=== PATIENT | female | born 2000 | race Caucasian/White ===

== ENCOUNTER 2024-01-22 00:59 | Emergency (ER) | payer BC, SELFPAY ==
[2024-01-22 01:02] VITALS: BP 140/90
[2024-01-22 01:40] LABS: Hematocrit 35.8 % (37.0-47.0); Hemoglobin 12.6 g/dL (12.0-16.0); Mean Corp Hgb Conc. 35.2 g/dL (33.0-37.0); Mean Corpuscular Hgb 30.9 pg (27.0-31.0); Mean Corpuscular Volume 87.7 fL (81.0-99.0); Mean Platelet Volume 9.5 fL (7.4-10.4); Platelet Count 300 10^3/uL (130-400); Red Blood Cell Count 4.08 10^6/uL (4.20-5.40); Red Cell Dist. Width 12.4 % (11.5-14.5); White Blood Cell Count 11.8 10^3/uL (4.8-10.8)
[2024-01-22 01:53] LABS: HCG, Serum Qualitative Screen Negative
[2024-01-22 01:55] LABS: Blood Urea Nitrogen 19 mg/dl (7-17); Calcium 9.6 mg/dl (8.4-10.2); Carbon Dioxide 26 mmol/L (22-30); Chloride 104 mmol/L (98-107); Glucose 108 mg/dl (70-99); Potassium 4.1 mmol/L (3.5-5.1); Sodium 138 mmol/L (135-145); eGFR > 60.00
[2024-01-22 04:43] VITALS: BP 122/73
[2024-01-22 04:44] VITALS: BMI 34.9
--- NOTE | 2024-01-22 05:08 | ED.GENMED ---
History of Present Illness
<REVA Maldonado (Lenka) - Last Filed: 01/22/24 06:18>
General
Chief Complaint: Generalized Pain
Source: patient and significant other
Exam Limitations: none
Time Seen by Provider: 01/22/24 04:50
Nursing documentation reviewed up to this point in time: agreed with
History of Present Illness
History of Present Illness:
Pt is a 23 yo female with PMHx of rheumatoid arthritis who presents to the ED with generalized malaise and myalgias x 1d. Yesterday morning (01/20) pt 'felt off', lightheaded, and 'like my body was airy'. Around 2200 tonight she began trembling, but
did not feel hot to touch, was not diaphoretic, denies chills. However, she did not check her temperature. This resolved without intervention after about 6 hours. She endorses nausea, no vomiting. Associated dyspnea, no pleurisy. No headache, chest
pain, abdominal pain or cramping, constipation, diarrhea. No known sick contacts. Pt is here visiting from [place]. Per partner, he manually counted her pulse at home, obtained a rate of 120. Pt states she has been unable to sleep due to diffuse
myalgias.
Pt does not take daily medications.
Past History
<REVA Maldonado (Lenka) - Last Filed: 01/22/24 06:18>
Past History
ED Past Medical History: Other (rheumatoid arthritis)
Phy Exam
<REVA Maldonado (Lenka) - Last Filed: 01/22/24 06:18>
General Physical Exam
General Presentation: no apparent distress
General age: appears stated age
General Skin: warm and diaphoretic
General Habitus: normal
General Mental: alert
General Hydration: appears well hydrated
Cardiovascular Exam
Cardiovascular Exam: regular rate/rhythm, no gallop, no murmur and normal peripheral pulses
Pulmonary Exam
Pulmonary Exam: lungs clear, no respiratory distress, no rales, no rhonchi, no wheezing and no cough
Gastrointestinal Exam
Gastrointestinal Exam: normal bowel sounds, non distended and tender (RLQ, mild)
Palpation: right lower quadrant: Mild tenderness
Course
<REVA Maldonado (Lenka) - Last Filed: 01/22/24 06:18>
Orders/Labs/Results
Orders:
Orders
01/22/24 01:07
Test Result ONCE
01/22/24 01:33
BMP [Basic Metabolic Panel] Urgent
Complete Blood Count/No Diff Urgent
HCG, Serum Qualitative Screen Urgent
01/22/24 04:48
COVID-19 Antigen Urgent
Source: Nasal Swab
01/22/24 05:15
Ibuprofen [Motrin] 600 mg PO NOW STA
Abnormal Lab Results
01/22/24
01:33
WBC 11.8 H 10^3/uL
(4.8-10.8)
RBC 4.08 L 10^6/uL
(4.20-5.40)
Hct 35.8 L %
(37.0-47.0)
BUN 19 H mg/dl
(7-17)
Glucose 108 H mg/dl
(70-99)
01/22/24 01:33
01/22/24 01:33
Vital Signs
Initial and Last Documented VS:
Initial Vital Signs
Temp Pulse Resp BP Pulse Ox
98 F 100 22 140/90 97
01/22/24 01:02 01/22/24 01:02 01/22/24 01:02 01/22/24 01:02 01/22/24 01:02
Last Documented Vital Signs
Temp Pulse Resp BP Pulse Ox
98.6 F 92 16 122/73 98
01/22/24 04:43 01/22/24 04:43 01/22/24 04:43 01/22/24 04:43 01/22/24 04:43
<Dawit oHuse, DO - Last Filed: 01/22/24 06:28>
Orders/Labs/Results
Orders:
Orders
01/22/24 01:07
Test Result ONCE
01/22/24 01:33
BMP [Basic Metabolic Panel] Urgent
Complete Blood Count/No Diff Urgent
HCG, Serum Qualitative Screen Urgent
01/22/24 04:48
COVID-19 Antigen Urgent
Source: Nasal Swab
01/22/24 05:15
Ibuprofen [Motrin] 600 mg PO NOW STA
Abnormal Lab Results
01/22/24
01:33
WBC 11.8 H 10^3/uL
(4.8-10.8)
RBC 4.08 L 10^6/uL
(4.20-5.40)
Hct 35.8 L %
(37.0-47.0)
BUN 19 H mg/dl
(7-17)
Glucose 108 H mg/dl
(70-99)
01/22/24 01:33
01/22/24 01:33
Vital Signs
Initial and Last Documented VS:
Initial Vital Signs
Temp Pulse Resp BP Pulse Ox
98 F 100 22 140/90 97
01/22/24 01:02 01/22/24 01:02 01/22/24 01:02 01/22/24 01:02 01/22/24 01:02
Last Documented Vital Signs
Temp Pulse Resp BP Pulse Ox
98.6 F 92 16 122/73 98
01/22/24 04:43 01/22/24 04:43 01/22/24 04:43 01/22/24 04:43 01/22/24 04:43
<REVA Maldonado (Lenka) - Last Filed: 01/22/24 06:18>
MDM/Problems Addressed
Differential Diagnosis Includes:
23 yo female with PMHx of rheumatoid arthritis who presents to the ED with generalized weakness and myalgias x 1d.
Pt 'felt off', lightheaded, and 'like my body was airy'. Trembling and nausea and dyspnea. No chills, no fever, no BROWN.
DDx: viral syndrome vs acute RA exacerbation
COVID negative
Will treat with 600mg motrin and reassess
Chronic conditions affecting care: Other (rheumatoid arthritis)
<REVA Maldonado (Lenka) - Last Filed: 01/22/24 06:18>
*Critical Care Note
Total Time (30-74mins, 75-104mins- exclusive of procedures): Not Applicable
<REVA Maldonado (Lenka) - Last Filed: 01/22/24 06:18>
Update Note
Update Note:
0558 - no improvement in general malaise and myalgias with motrin 600mg. Pt reporting the pain and myalgias are predominantly in her spine and tailbone, which is where her chronic pain is always located, but 'it is worse than normal'
ED Attending Note
<REVA Maldonado (Lenka) - Last Filed: 01/22/24 06:18>
-
Portions of this chart may have been created with voice recognition software.� Occasional wrong word or��sound alike� substitutions may have occurred due to the inherent limitations of voice recognition software.
<Dawit House DO - Last Filed: 01/22/24 06:28>
ED Attending Note
Patient seen and examined by attending physician: Yes
I performed the substantive portion of visit, reviewed & personally made and approve the management plan that is documented in note by myself or GERBER.: Yes
ED Attending Note:
Pleasant 23-year-old female with a history of rheumatoid arthritis presents with acute on chronic low back pain, and generalized aching. Patient was seeing a microstrategy reports developer in [place]. Patient states that the microstrategy reports developer closed practice.
Patient has had similar pain in the past. She did take ibuprofen which did not help. Denies fevers, chills, chest pain, or shortness of breath. Patient was seen in conjunction with the PA student. I have reviewed and agree with the history and
treatment plan presented. On my independent physical exam, patient is awake, alert, and oriented x3. No respiratory distress noted. No audible wheezing. No midline spinal tenderness
Discharge Plan
Departure
Patient Disposition: Home (Routine Discharge)
Date of Disposition: 01/22/24
Time of Disposition: 06:27
Patient with high blood pressure during this ER visit?: Yes
Condition: Good
Discharge Problem:
Generalized pain
Instructions: Chronic Pain (DC), BLOOD PRESSURE
Prescriptions:
New
diclofenac sodium 75 mg tablet,delayed release (DR/EC)
75 mg PO BID Qty: 10 0RF
Referrals:
Simran Diaz MD [Consulting Staff] - Tomorrow
NONE,* [Family Provider] -
Activity Restrictions/Additional Instructions:
It was a pleasure meeting you and taking part in your care. We hope for your continued healing and wellness.
Please read discharge instructions in their entirety. However, they are for general education and may not describe your exact diagnosis at discharge. Information on your ER visit and medical conditions were discussed with you along with appropriate
follow up information...
If indicated, please take your medications as instructed and indicated on discharge paperwork.
Please schedule a follow up appointment as directed. Call to schedule an appointment
Please return to the emergency department with ANY change in, persisting, or worsening of symptoms. If any of your symptoms do not improve, or persist, or become more severe within 6-12 hours, please return to the emergency department for further
care.
Please return to the emergency department if you develop a headache, neck pain/stiffness, fever greater than 100.4F, chest pain, shortness of breath, persistent nausea, vomiting, slurred speech, difficulty walking, numbness/tingling, weakness, signs
of infection or any other symptoms that are worrisome to you.
If you have any questions or concerns please do not hesitate to call the Hospital at or E-mail me directly at [email or web address]
Interventions
Interventions:
*Risk Screen - Suicide Last Done: 01/22/24 01:02
*General Assessment Last Done: 01/22/24 04:44
*Neglect/Abuse Screening Last Done: 01/22/24 01:02
*ED COVID-19 Vaccine History Last Done: 01/22/24 04:44
Discharge Date and Time
Print Language: LATVIAN
[2024-01-22 05:09] LABS: COVID-19 Antigen Negative (Negative)
[2024-01-22] MEDS: MOTRIN 600 MG PO (05:21)
[2024-01-22 06:33] VITALS: BP 108/66
== END 2024-01-22 06:35 | disposition home or self-care (01) ==
LOC: EMR 00:59
PROVIDERS: EMERGENCY PHYSICIAN Student in an Organized Health Care Education/Training Program
DX: R42 Dizziness and giddiness (principal); R53.81 Other malaise; M79.10 Myalgia, unspecified site; R11.0 Nausea; M54.50 Low back pain, unspecified; R06.00 Dyspnea, unspecified; Z11.52 Encounter for screening for COVID-19; R53.1 Weakness; R03.0 Elevated blood-pressure reading, without diagnosis of hypertension; M06.9 Rheumatoid arthritis, unspecified; G89.29 Other chronic pain
CPT/HCPCS: 99283; 80048; 84703; 85027; 87811

== ENCOUNTER 2024-03-10 02:52 | Emergency (ER) | payer BC, SELFPAY ==
[2024-03-10 02:55] VITALS: BP 107/73
[2024-03-10 03:00] VITALS: BP 103/72
[2024-03-10 03:02] VITALS: BMI 33.9
[2024-03-10] MEDS: ZOFRAN ODT (ORALLY DISINTEGRATING) 4 MG PO (03:17)
--- NOTE | 2024-03-10 03:31 | ED.GENMED ---
History of Present Illness
<Fernando Melendez MD, Resident - Last Filed: 03/10/24 04:08>
General
Chief Complaint: Alcohol Problem
Source: patient and significant other
Time Seen by Provider: 03/10/24 02:54
Travel History
Have you traveled to any high risk areas for coronavirus over the past 14 days?: No
Have you had any contact with someone who has COVID-19?: No
Do you have any symptoms of coronavirus? Fever > 100 degrees, chills, cough, shortness of breath, sore throat, loss of taste or smell, muscle aches, or headache?: No
History of Present Illness
History of Present Illness:
Marly Fairbanks, age 23, was out drinking this evening and then was unable to stay awake. She was throwing up by the side of the road and not feeling well when she decided to go to the hospital. She had about 4 double-shot Kimberly Jewish drinks and a
couple other drinks. Did not take any other drugs or medications with that. She feels fatigued and is constantly nauseous. Complains of a headache and photophobia. Denies any abdominal or chest pain, shortness of breath or palpitations.
Past History
<Fernando Melendez MD, Resident - Last Filed: 03/10/24 04:08>
Past History
ED Past Medical History: Other (rheumatoid arthritis; alcohol use disorder)
ED Past Surgical History: None and Other
Social History
Tobacco: Former smoker
Alcohol: Binge drinker
Drug: None
Personal: Partner
Employment: Student
<Carlyn Fontaine DO - Last Filed: 03/10/24 05:23>
Past History
ED Past Medical History: Other (rheumatoid arthritis; alcohol use disorder; Rx pain med abuse in the past)
Social History
Drug: Former user
Family History
Family History: Other (Noncontributory)
Review of Systems
<Fernando Melendez MD, Resident - Last Filed: 03/10/24 04:08>
Review of Systems
All Other Systems: Not applicable
Constitutional: Reports fatigue
EENT: Reports no symptoms
Respiratory: Reports no symptoms
Cardiac: Reports no symptoms
ABD/GI: Reports nausea and vomiting
: Reports no symptoms
Musculoskeletal: Reports no symptoms
Skin: Reports no symptoms
Neurological: Reports dizzy
Endocrine: Reports no symptoms
Hematologic/Lymphatic: Reports no symptoms
Psychiatric: Reports no symptoms
Phy Exam
<Fernando Melendez MD, Resident - Last Filed: 03/10/24 04:08>
General Physical Exam
General Presentation: well appearing and no apparent distress
General Skin: warm and dry
General Habitus: normal
General Mental: alert
General Hydration: appears well hydrated
ENT Exam
ENT Exam: EOMI, pharynx normal, neck supple and normocephalic
Eye Exam
Eye Exam: PERRL, cornea clear and conjunctiva normal
Cardiovascular Exam
Cardiovascular Exam: regular rate/rhythm, no edema, no murmur and normal peripheral pulses
Pulmonary Exam
Pulmonary Exam: lungs clear, no respiratory distress, no rales, no crackles, no rhonchi, no stridor, no wheezing and no cough
Gastrointestinal Exam
Gastrointestinal Exam: normal bowel sounds, non tender, soft, no organomegaly, no pulsatile mass and non distended
Neurological Exam
Neurological Exam: alert, oriented x3, no motor deficits and speech normal
Musculoskeletal Exam
Musculoskeletal Exam: full ROM and no edema
Skin Exam
Skin Exam: normal color, warm/dry, no rash and no petechia
Psychiatric Exam
Psychiatric Exam: normal mood/affect
Scores
<Carlyn Fontaine DO - Last Filed: 03/10/24 05:23>
Withdrawal Assessment of Alcohol
Withdrawal Assessment Completed?: Not applicable
Course
<Fernando Melendez MD, Resident - Last Filed: 03/10/24 04:08>
Orders/Labs/Results
Orders:
Orders
03/10/24 03:12
Ondansetron Orally Disint [Zofran Odt (Orally Disintegrating)] 4 mg PO NOW STA
Vital Signs
Initial and Last Documented VS:
Initial Vital Signs
Temp BP Pulse Ox
98.2 F 107/73 99
03/10/24 02:55 03/10/24 02:55 03/10/24 02:55
Last Documented Vital Signs
Temp BP Pulse Ox
98.2 F 100/66 100
03/10/24 02:55 03/10/24 05:00 03/10/24 05:00
<Carlyn Fontaine, DO - Last Filed: 03/10/24 05:23>
Orders/Labs/Results
Orders:
Orders
03/10/24 03:12
Ondansetron Orally Disint [Zofran Odt (Orally Disintegrating)] 4 mg PO NOW STA
Vital Signs
Initial and Last Documented VS:
Initial Vital Signs
Temp BP Pulse Ox
98.2 F 107/73 99
03/10/24 02:55 03/10/24 02:55 03/10/24 02:55
Last Documented Vital Signs
Temp BP Pulse Ox
98.2 F 100/66 100
03/10/24 02:55 03/10/24 05:00 03/10/24 05:00
<Fernando Melendez MD, Resident - Last Filed: 03/10/24 04:08>
*Critical Care Note
Total Time (30-74mins, 75-104mins- exclusive of procedures): Not Applicable
ED Attending Note
<Fernando Melendez MD, Resident - Last Filed: 03/10/24 04:08>
-
Portions of this chart may have been created with voice recognition software.� Occasional wrong word or��sound alike� substitutions may have occurred due to the inherent limitations of voice recognition software.
<Carlyn Fontaine DO - Last Filed: 03/10/24 05:23>
ED Attending Note
Patient seen and examined by attending physician: Yes
I performed a history and physical exam of patient and discussed management with resident, I reviewed resident's note and agree with documented findings and plan of care.: Yes
ED Attending Note:
This is a 23-year-old female with history of rheumatoid arthritis, chronic back pain, had been following with mottler operator in the past and had previously been maintained on rheumatologic's as well as chronic pain medications but currently takes no
medicines on a daily basis.
Had been residing in [place] but more recently relocated locally, resides with her boyfriend.
She attended a green party tonight and admits to significant alcohol consumption which is unusual for her. Her boyfriend called 911 when he drove the patient home and was unable to arouse her, unable to get her out of the car into the house. No reported
fall nor injuries. She arrives via EMS and admits to nausea with few episodes of dry heaves.
She denies risk of . Menses have been normal and on time.
She denies drug use.
23-year-old female appears her stated age, awake, appears moderately intoxicated but oriented x 3 and easily communicative.
No evidence of trauma on exam. No focal neurologic deficits.
Highly suspect acute alcohol intoxication but no evidence of severe intoxication, remains hemodynamically stable, maintaining her airway.
Will give an oral dose of Zofran ODT and continue to observe.
Will plan for oral hydration/oral fluid challenge after nausea resolves.
Could consider laboratory studies but at this point not indicated.
Prior records reviewed, evaluated in this ED January 21 with complaints of myalgias, lightheadedness. Unremarkable laboratory studies at that time.
03/10/2024 0523 AM
Patient remains awake and alert, tolerating oral fluids with no further nausea or vomiting.
Will discharge to home with recommendation she avoid any further alcohol consumption, otherwise stay well-hydrated on a daily basis.
Follow-up with PCP for recheck.
Discharge Plan
Departure
Patient Disposition: Home (Routine Discharge)
Date of Disposition: 03/10/24
Time of Disposition: :23
Patient with high blood pressure during this ER visit?: No
Condition: Good
Discharge Problem:
Alcohol intoxication
Instructions: Alcohol Intoxication ED
Prescriptions:
No Action
diclofenac sodium 75 mg tablet,delayed release (DR/EC)
75 mg PO BID Qty: 10 0RF
Referrals:
[facility] [Provider Group] - Call in 1-3 days for appt
[facility] [Outside]
UNKNOWN - PT DOES,NOT KNOW [Family Provider] -
Interventions
Interventions:
*Risk Screen - Suicide Last Done: 03/10/24 02:55
*General Assessment Last Done: 03/10/24 02:55
*Neglect/Abuse Screening Last Done: 03/10/24 02:55
*ED COVID-19 Vaccine History Last Done: 03/10/24 02:55
ED- Neurological Assessment Last Done: 03/10/24 03:02
ED-Psychological Assessment Last Done: 03/10/24 03:02
Discharge Date and Time
Print Language: GREENLANDIC
[2024-03-10 04:00] VITALS: BP 102/65
[2024-03-10 05:00] VITALS: BP 100/66
== END 2024-03-10 05:47 | disposition home or self-care (01) ==
LOC: EMR 02:52
PROVIDERS: EMERGENCY PHYSICIAN Emergency Medicine
DX: F10.129 Alcohol abuse with intoxication, unspecified (principal); Z87.891 Personal history of nicotine dependence; M06.9 Rheumatoid arthritis, unspecified
CPT/HCPCS: 99283

== ENCOUNTER 2024-06-27 21:26 | Emergency (ER) | payer BC, SELFPAY ==
[2024-06-27 21:27] VITALS: BP 119/70
[2024-06-27 23:21] VITALS: BP 104/77
[2024-06-27 23:23] VITALS: BMI 37.0
[2024-06-27] MEDS: NSS 1000 IV (23:39)
[2024-06-27 23:43] LABS: % Basophils 0.3 % (0-2); % Immature Granulocytes 0.2 % (0-0.5); % Lymphocytes 23.1 % (20.5-51.1); % Monocytes 5.6 % (1.7-9.3); % Neutrophils 67.8 % (42.2-75.2); Absolute Eosinophils 0.3 10^3/uL (0-0.7); Absolute Lymphocytes 2.2 10^3/uL (1.2-3.4); Absolute Monocytes 0.5 10^3/uL (0.1-0.6); Absolute Neutrophils 6.6 10^3/uL (1.4-6.5); Hematocrit 38.3 % (37.0-47.0); Hemoglobin 13.4 g/dL (12.0-16.0); Mean Corpuscular Hgb 31.3 pg (27.0-31.0); Mean Corpuscular Volume 89.5 fL (81.0-99.0); Mean Platelet Volume 9.6 fL (7.4-10.4); Nucleated Red Blood Cells % 0 %; Platelet Count 297 10^3/uL (130-400); Red Blood Cell Count 4.28 10^6/uL (4.20-5.40); White Blood Cell Count 9.7 10^3/uL (4.8-10.8)
--- NOTE | 2024-06-27 23:56 | ED.GENMED ---
History of Present Illness
General
Chief Complaint: Dizziness
Source: patient
Exam Limitations: none
Time Seen by Provider: 06/27/24 22:51
History of Present Illness
History of Present Illness:
This is a 23 year old female that comes in with c/o left sided abd pain. States that she has had pain for the past 4-5 days on the left side. States that it is mid left abd and then it went lower into the lower abd/pelvis. States that she is
nauseated and feels bloated. States that she is able to eat but her appetite has . States that today she felt dizzy like the room was spinning. States that she had chills, occasional chest discomfort that last less then a min, slight
headache and dizziness. Denies any fever, SOB, vomiting, diarrhea, urinary burning.
Past History
Past History
ED Past Medical History: Hypercholesterolemia and Other (rheumatoid arthritis; alcohol use disorder; Rx pain med abuse in the past, Murmur)
ED Past Surgical History: None
Social History
Tobacco: Former smoker
Alcohol: Binge drinker
Drug: Former user
Personal: Single
Employment: Student
Family History
Family History: Other (Noncontributory)
Review of Systems
Review of Systems
All Other Systems: ROS reviewed and negative except as documented in HPI and ROS
Constitutional: Reports chills; Denies fever
EENT: Reports no symptoms
Respiratory: Reports no symptoms; Denies cough or trouble breathing
Cardiac: Reports chest pain (occasional less then 1 min)
ABD/GI: Reports abdominal pain and nausea; Denies vomiting or diarrhea
: Reports no symptoms; Denies dysuria, frequency or urgency
Musculoskeletal: Reports no symptoms
Skin: Reports no symptoms
Neurological: Reports dizzy and headache
Psychiatric: Reports no symptoms
Phy Exam
General Physical Exam
General Presentation: mild distress
General age: appears stated age
General Skin: warm and dry
General Habitus: normal
General Mental: alert
General Hydration: appears well hydrated
ENT Exam
ENT Exam: TM's normal, pharynx normal and neck supple
Eye Exam
Eye Exam: EOMI
Cardiovascular Exam
Cardiovascular Exam: regular rate/rhythm, no edema, no murmur and normal peripheral pulses
Pulmonary Exam
Pulmonary Exam: lungs clear, no respiratory distress, no rales, chest non tender, no crackles, no rhonchi, no wheezing and no cough
Gastrointestinal Exam
Gastrointestinal Exam: normal bowel sounds, soft, no organomegaly, no pulsatile mass, non distended and tender (Left sided abd tenderness with palpation)
Musculoskeletal Exam
Musculoskeletal Exam: full ROM and no edema
Skin Exam
Skin Exam: normal color, warm/dry, no rash and no petechia
Psychiatric Exam
Psychiatric Exam: normal mood/affect
Course
Orders/Labs/Results
Orders:
Orders
06/27/24 21:30
EKG [Electrocardiogram (*1)] Urgent
Reason for Study: Vertigo / Dizzy
EKG- Treatment ONCE
06/27/24 23:24
Urinalysis Reflex To Culture Urgent
Date Specimen was Collected: 06/28/24
Time Specimen was Collected: 00:49
0.9% Sodium Chloride 1000 ml [Nss] 1,000 ml IV BOLUS
Test Result ONCE
06/27/24 23:37
Complete Blood Count/With Diff Urgent
Comprehensive Metabolic Panel Urgent
HCG, Serum Qualitative Screen Urgent
06/28/24 00:45
CT Abd/pelvis W Iv Cont Urgent
Reason For Exam: Left lower abd pain
Abnormal Lab Results
06/27/24
23:37
MCH 31.3 H pg
(27.0-31.0)
Absolute Neuts (auto) 6.6 H 10^3/uL
(1.4-6.5)
BUN 18 H mg/dl
(7-17)
Glucose 109 H mg/dl
(70-99)
06/27/24 23:37
06/27/24 23:37
CBC normal,
Vital Signs
Initial and Last Documented VS:
Initial Vital Signs
Temp Pulse Resp BP Pulse Ox
98.7 F 85 16 119/70 100
06/27/24 21:27 06/27/24 21:27 06/27/24 21:27 06/27/24 21:27 06/27/24 21:27
Last Documented Vital Signs
Temp Pulse Resp BP Pulse Ox
98.7 F 77 19 107/61 100
06/27/24 21:27 06/28/24 00:30 06/28/24 00:30 06/28/24 00:00 06/28/24 00:30
MDM/Problems Addressed
Differential Diagnosis Includes:
Diverticulitis. Ovarian cyst, Ovarian torsion
MDM/Problems Addressed:
This is a 23 year old female that comes in with a 4-5 day history of Left side abd pain. States that she can eat but her appetite has decreased.
Will check labs, give IV fluids, CT scan. Offered patient pain medication but she refused.
Back into see patient. Explained that she never mentioned that she was at [facility] today and had a CT scan. Patient tool the supply technician after the CT was done. Explained to patient that this was a lot of radiation in one day. Explained that there
is a dominant follicle in the left ovary and that this may be the cause of patient discomfort. Do not feel that this is torsion as patient is not that uncomfortable and has not needed anything for pain. Explained to patient that she needs to see
the FIRST MATE as she states she has missed her Period for the past 2 months. Patient to return with any concerns.
Chronic conditions affecting care:
NA
Acute Exacerbation and/or Progression of Chronic Illness:
NA
*Radiology
Radiology exam reviewed: radiology read reviewed (ct [place]-3.5cm dominant follicle in the left ovary is a possible source of pain. The appearance does not suggest ovarian torsion. Normal appendix which is located in the pelvis. Mild
diverticulosis without acute inflammation. Decompressed gallbladder. Normal kidneys with no stones or hydronephr)
*Pulse Oximetry
Patient hypoxic: no
*EKG
Interpreted by ED Provider?: Yes
Heart Rate: 79
Rate: normal
Rhythm: sinus and sinus arrhythmia
[place]: normal axis
QRS Pattern: normal QRS
Ischemia: no ischemia
*Core Analyst Interpretation
Rate: normal
Heart Rate: 73
Rhythm: sinus
*Critical Care Note
Total Time (30-74mins, 75-104mins- exclusive of procedures): Not Applicable
ED Attending Note
-
Portions of this chart may have been created with voice recognition software.� Occasional wrong word or��sound alike� substitutions may have occurred due to the inherent limitations of voice recognition software.
Discharge Plan
Departure
Patient Disposition: Home (Routine Discharge)
Date of Disposition: 06/28/24
Time of Disposition: 01:35
Patient with high blood pressure during this ER visit?: No
Condition: Good
Covid-19: Not Applicable
Discharge Problem:
Left sided abdominal pain, Ovarian follicle
Instructions: Abdominal pain in adults - ED discharge instructions
Prescriptions:
No Action
diclofenac sodium 75 mg tablet,delayed release (DR/EC)
75 mg PO BID PRN (Reason: TMJ)
Referrals:
Jacey Edouadr CRNP [Family Provider] -
Activity Restrictions/Additional Instructions:
As discussed, your blood work shows very slight Dehydration. Your HCG is negative. The CT shows that you have a Left ovarian follicle. This may be the cause of your discomfort. Please follow up with the FIRST MATE for further evaluation. You may use
Tylenol and alternate with Ibuprofen for pain. A heating pad may also help with any discomfort. IF YOU HAVE ANY OTHER CONCERNS PLEASE RETURN TO THE EMERGENCY ROOM.
Interventions
Interventions:
*Risk Screen - Suicide Last Done: 06/27/24 21:27
*General Assessment Last Done: 06/27/24 23:24
*Neglect/Abuse Screening Last Done: 06/27/24 21:27
*ED COVID-19 Vaccine History Last Done: 06/27/24 23:24
ED- Neurological Assessment Last Done: 06/27/24 23:41
ED- Cardiac Assessment Last Done: 06/27/24 23:41
Discharge Date and Time
Print Language: TRISTANIAN
[2024-06-28] VITALS: BP 107/61
[2024-06-28 00:08] LABS: ALT (SGPT) 17 U/L (0-35); AST (SGOT) 23 U/L (14-36); Albumin 4.3 g/dl (3.5-5.0); Alkaline Phosphatase 91 U/L (38-126); Blood Urea Nitrogen 18 mg/dl (7-17); Calcium 9.1 mg/dl (8.4-10.2); Carbon Dioxide 29 mmol/L (22-30); Chloride 99 mmol/L (98-107); Estimated Creatinine Clearance 122 ml/min; Glucose 109 mg/dl (70-99); Potassium 4.1 mmol/L (3.5-5.1); Sodium 136 mmol/L (135-145); Total Bilirubin 0.5 mg/dl (0.2-1.3); Total Protein 6.9 g/dl (6.3-8.2); eGFR > 60.00
[2024-06-28 00:20] LABS: HCG, Serum Qualitative Screen Negative
[2024-06-28 01:00] VITALS: BP 113/67
[2024-06-28 01:28] LABS: Urine Albumin Negative (Neg - Trace); Urine Bilirubin Negative (Negative); Urine Character Clear (Clear); Urine Color Yellow; Urine Glucose Negative (Negative); Urine Ketone Negative (Negative); Urine Leukocyte Trace (Negative); Urine Nitrite Negative (Negative); Urine Occult Blood Negative (Negative); Urine Specific Gravity 1.015 (<1.030); Urine Urobilinogen Negative (Neg - 1+)
[2024-06-28 01:44] VITALS: BP 113/70
[2024-06-28 02:03] LABS: Urine Mucus Many; Urine Squamous Cell >30 /LPF (Few)
[2024-06-28 02:04] LABS: Urine Bacteria Many (Negative); Urine Red Blood Cell 0-2 /HPF (0-2)
== END 2024-06-28 01:56 | disposition home or self-care (01) ==
LOC: EMR 21:26
PROVIDERS: Clinical Nurse Specialist Family Health; EMERGENCY PHYSICIAN Emergency Medicine; FAMILY PHYSICIAN Nurse Practitioner Family
DX: R10.32 Left lower quadrant pain (principal); E78.00 Pure hypercholesterolemia, unspecified; M06.9 Rheumatoid arthritis, unspecified; R01.1 Cardiac murmur, unspecified; Z87.891 Personal history of nicotine dependence
CPT/HCPCS: 99284; 74177; 80053; 81003; 81015; 84703; 85025; 87086; 93005; Q9967

== ENCOUNTER 2024-06-29 17:58 | Emergency (ER) | payer BC, SELFPAY ==
[2024-06-29 18:00] VITALS: BP 132/75
--- NOTE | 2024-06-29 18:56 | ED.MUSCINJ ---
HPI-Injury
General
Chief Complaint: Musculo-Skeletal Complaint
Source: patient
Exam Limitations: none
Time Seen by Provider: 06/29/24 18:42
Nursing documentation reviewed up to this point in time: agreed with
History of Present Illness-Injury
Is this injury a work related problem?: No
Is pt an associate of [facility]/[place]?: No
Initial Injury comments:
Patient states her dogs began fighting. SHe sustained bite while trying to separate them. Has puncture on right forearm. Bruising and swelling to right forearm. Injury occurred just [employer]
Past History
Past History
ED Past Medical History: Hypercholesterolemia and Other (rheumatoid arthritis; alcohol use disorder; Rx pain med abuse in the past, Murmur)
ED Past Surgical History: None
Social History
Tobacco: Former smoker
Alcohol: Binge drinker
Drug: Former user
Personal: Single
Employment: Student
Family History
Family History: Other (Noncontributory)
Review of Systems
Review of Systems
Allergies reviewed?: Yes
All Other Systems: ROS reviewed and negative except as documented in HPI and ROS
Constitutional: Reports no symptoms
Musculoskeletal: Reports other (bruising and swelling to right forearm)
Skin: Reports other (dog bite right forearm)
Neurological: Reports no symptoms
Psychiatric: Reports no symptoms
Musculoskeletal Injury Exam
Musculoskeletal Injury Exam
Right forearm:
Pain with Movement?: Moderate
Tender to palpation?: Moderate
Soft tissue swelling?: Mild
External deformity and angulation?: None
Joint effusion?: None
Contusion?: Moderate
Hematoma-local bleeding into tissue?: Moderate
Strain- Sprain- Tear (Connective tissue injury)?: None
Crepitus with movement?: No
Joint instability?: No
Malalignment/deformity?: No
Range of motion: Limited
Distal skin color and temperature: normal-warm & good color
Capillary Refill: normal
Normal distal neurovascular exam?: Yes
Peripheral Pulses: radial (right): 3+
Skin Exam
Bite
Right forearm:
Type: animal
Skin has: abrasions but intact
Surrounding area around bite has: no evidence of erythema and ecchymotic areas
Distal skin color and temperature: normal-warm & good color
Normal distal neurovascular exam: Yes
Phy Exam
General Physical Exam
General Presentation: well appearing and no apparent distress
General age: appears stated age
General Skin: warm and dry
General Habitus: normal
General Mental: alert
Musculoskeletal Exam
Musculoskeletal Exam: neuro vasc intact
Skin Exam
Skin Exam: normal color
Psychiatric Exam
Psychiatric Exam: normal mood/affect
Injury Course
Orders/Labs/Results
Orders:
Orders
06/29/24 18:05
CR Wrist - Right Min 3 Views Urgent
Comment:
Reason For Exam: bit by dog on right wrist/forearm, pain/swelling
Forearm, Right 2 View [CR Forearm - Right 2 View] Urgent
Comment:
Reason For Exam: bit by dog on right wrist/forearm, pain/swelling
06/29/24 18:52
Sling Right-Treatment ONCE
Amoxicillin 875 mg/Clav 125 mg [Augmentin 875 mg/125 mg] 1 tablet PO NOW STA
*Radiology
Radiology exam reviewed: radiology read reviewed
*Pulse Oximetry
Patient hypoxic: no
*Critical Care Note
Total Time (30-74mins, 75-104mins- exclusive of procedures): Not Applicable
ED Attending Note
-
Portions of this chart may have been created with voice recognition software.� Occasional wrong word or��sound alike� substitutions may have occurred due to the inherent limitations of voice recognition software.
Discharge Plan
Departure
Patient Disposition: Home (Routine Discharge)
Date of Disposition: 06/29/24
Time of Disposition: 18:54
Patient with high blood pressure during this ER visit?: No
Condition: Good
Covid-19: Not Applicable
Discharge Problem:
Dog bite of forearm
Instructions: Contusion (DC), Ibuprofen, Using Cold for Pain, Animal Bites ED
Prescriptions:
New
amoxicillin-pot clavulanate 875-125 mg tablet
1 tab PO BID Qty: 10 0RF
No Action
diclofenac sodium 75 mg tablet,delayed release (DR/EC)
75 mg PO BID PRN (Reason: TMJ)
Activity Restrictions/Additional Instructions:
Follow up with your family doctor.
Discharge Date and Time
Print Language: BURUNDIAN
[2024-06-29] MEDS: AUGMENTIN 875 MG/125 MG 1 TABLET PO (18:57)
== END 2024-06-29 19:11 | disposition home or self-care (01) ==
LOC: EMR 17:58
PROVIDERS: EMERGENCY PHYSICIAN Student in an Organized Health Care Education/Training Program; FAMILY PHYSICIAN Nurse Practitioner Family
DX: S51.831A Puncture wound without foreign body of right forearm, initial encounter (principal); W54.0XXA Bitten by dog, initial encounter; E78.00 Pure hypercholesterolemia, unspecified; M06.9 Rheumatoid arthritis, unspecified; Z87.891 Personal history of nicotine dependence
CPT/HCPCS: 99283; 73090; 73110